=== PATIENT | female | born 1995 | race African-American/Black ===

== ENCOUNTER 2022-01-27 22:31 | Emergency (ER) | payer MEDICAID, SELFPAY ==
[2022-01-27 23:43] VITALS: BP 136/85; PULSE 78; RESP 16; TEMP 37.3; O2SAT 99; BMI 44.4
[2022-01-28] MEDS: LORazepam 1 MG TABLET PO (00:49)
[2022-01-28] MEDS: Acetaminophen 325 MG TABLET 650 MG PO (00:49)
--- NOTE | 2022-01-28 01:15 | ED_ITS ---
HPI - Headache General Chief Complaint: Headache Stated Complaint: Headache Time Seen by Provider: 01/28/22 00:29 Source: patient Mode of arrival: ambulatory Limitations: no limitations History of Present Illness HPI Narrative: 27 yo female with hx of headaches, conversion disorder, tics and convulsions related to it notes tonight she felt stressed out global headache and her symptoms of tics and movements became worse with episode. MD elicited complaint: headache Pertinent past history: other (anxiety/stress/conversion disorder) Onset (ago): hour(s) (few) Onset description: gradually Location: diffuse and generalized Severity: moderate Quality & Timing: dull, constant and other (has improved since leaving the situation) Exacerbating factors: other (stress) Relieving factors: nothing Associated symptoms: other (dizziness, tics movements) Treatments prior to arrival: none Related Data Allergies Allergy/AdvReac Type Severity Reaction Status Date / Time shellfish derived Allergy Anaphylaxis Verified 01/27/22 23:42 Review of Systems Review of Systems: Constitutional : No Fever, No Chills, No Fatigue ENT/Mouth : No sore throat, No Rhinorrhea Eyes: No Eye Pain, No Swelling, No Redness Cardiovascular : No Chest Pain, No SOB, No Dyspnea on Exertion Respiratory : No Cough, No Sputum Gastrointestinal : No Nausea, No Vomiting, No Diarrhea, No abdominal Pain Genitourinary : No Dysuria, No Urinary Frequency, No Hematuria, Musculoskeletal : No joint pain, No Myalgias, No Joint Swelling Skin : No Skin Lesions, No rash Neuro : No Weakness, No Numbness, No Dizziness, positive Headache Psych : pos Anxiety/Panic, No Depression Heme/Lymph: No Bruising, No Bleeding,No Lymphadenopathy Endocrine : No Polyuria, No Polydipsia All other systems reviewed and are negative [facility] Past Medical History Attestation statement: The following information was validated with the patient. Medical History Conversion disorder Social History Social History (Updated 01/28/22 @ 01:19 by Shobha Newman DO) Patient Tobacco Use Status: Never used Tobacco Advance Directives: No Advance Directives Information Provided: Yes Physical Exam Vital Signs: Vital Signs: Last Vital Signs Temp 99.1 F 01/27/22 23:43 Pulse 78 01/27/22 23:43 Resp 16 01/27/22 23:43 BP 136/85 01/27/22 23:43 Pulse Ox 99 01/27/22 23:43 O2 Del Method 01/27/22 23:43 BMI result Body Mass Index 44.4 Appearance: Alert. Oriented X3. No acute distress. intermittent movememts of arms very sporadic, laughging no distress Eyes: Pupils equal, round and reactive to light. ENT: Pharynx normal. Neck: Normal inspection. Neck supple. no meningeal signs CVS: Normal heart rate and rhythm. Pulses normal. Respiratory: No respiratory distress. Breath sounds normal. Abdomen: Soft and nontender. Skin: Skin warm and dry. Normal skin color. Normal skin turgor. Extremities: No lower extremity edema. No calf ttp Neuro: Oriented X 3. No motor deficit. No sensory deficit. Course Course Course Narrative: headache improved feels better would like to go home MDM - Headache MDM Narrative Medical decision making narrative: 27 yo female with hx of prior headaches, conversion disorder here with c/o headaches gradual onset associated somatic symptoms which are not unusual for her she is overall not toxic. No fevers, no AC therapy. Normal neuro exam - doubt GEAR FINISHER infection/SAH. Will give ativan and tylenol. Discharge Plan Discharge Clinical Impression: Anxiety Acute tension headache Qualifiers: Intractability: not intractable Qualified Code(s): G44.209 - Tension-type headache, unspecified, not intractable Patient Disposition: Home, Self-Care Instructions: Acute Headache (ED), Anxiety (ED) Additional Instructions: return to ED for any worsening symptoms or concerns please follow up with your doctor Stand Alone Forms: Work/School Release
[2022-01-28 01:59] VITALS: BP 132/76; PULSE 86; RESP 16; TEMP 37.2; O2SAT 96
== END 2022-01-28 02:01 | disposition home or self-care (01) ==
PROVIDERS: Emergency Provider Emergency Medicine
DX: G44.209 Tension-type headache, unspecified, not intractable (principal); F41.9 Anxiety disorder, unspecified
CPT/HCPCS: 99283

== ENCOUNTER → 2022-02-19 13:23 | Outpatient (BNVA) | payer MEDICAID, SELFPAY | PROVIDERS: Visit Provider Physician Assistant | DX: E66.01 Morbid (severe) obesity due to excess calories (principal); M06.9 Rheumatoid arthritis, unspecified; J45.909 Unspecified asthma, uncomplicated; Z68.42 Body mass index [BMI] 45.0-49.9, adult | CPT/HCPCS: 99202 ==

== ENCOUNTER 2022-03-04 09:59 | Outpatient (REF) | payer MEDICAID, SELFPAY ==
[2022-03-04 10:23] LABS: MANUAL DIFF FLAG NO
[2022-03-04 10:56] LABS: Basophils Absolute Auto 0.1 X10*3/uL (0.0-0.2); Basophils Percent Auto 0.9 % (0-2); Eosinophils Absolute Auto 0.3 X10*3/uL (0.0-0.4); Eosinophils Percent Auto 5.1 % (0-4); Hematocrit 40.6 % (37.0-47.0); Hemoglobin 12.7 g/dl (12.0-16.0); Imm Gran Abs Auto 0.02 X10*3/uL (0.00-0.03); Imm Gran Pct Auto 0.3 % (0.0-0.4); Lymphocytes Percent Auto 33.3 % (20-40); Mean Corpuscular HGB Conc 31.3 g/dl (31.0-35.0); Mean Corpuscular Hemoglobin 28.9 pg (27.0-33.0); Mean Corpuscular Volume 92.3 fL (80.0-98.0); Mean Platelet Volume 11.7 fL (9.4-12.3); Monocytes Absolute Auto 0.5 X10*3/uL (0.1-1.2); Monocytes Percent Auto 8.3 % (2-11); Neutrophils Absolute Auto 3.1 x10*3/uL (2.0-8.3); Neutrophils Percent Auto 52.1 % (45-73); Platelet Count 265 X10*3/uL (160-400); Red Cell Distribution Width 13.1 % (11.0-16.0); White Blood Count 5.9 X10*3/uL (4.8-10.8)
[2022-03-04 11:06] LABS: Estimated Average Glucose 100 mg/dL; Hemoglobin A1c % 5.1 %
[2022-03-04 11:29] LABS: Alanine Aminotransferase 15 U/L (0-31); Albumin Level 4.1 g/dL (3.5-5.0); Alkaline Phosphatase 106 U/L (39-117); Anion Gap 14 (12-20); Aspartate Amino Transferase 15 U/L (5-31); Bilirubin Total 0.5 mg/dL (0.0-1.0); Blood Urea Nitrogen 11 mg/dL (9-16); C Reactive Protein 2.55 mg/dL (< or = 0.50); Calcium 9.4 mg/dL (8.4-10.2); Carbon Dioxide 27 mmol/L (22-29); Chloride 104 mmol/L (96-108); Cholesterol 176 mg/dL; Estimated Glomerular Filt Rate > 60; Glucose Random 94 mg/dL (60-115); HDL Cholesterol 41 mg/dL; Iron 42 mcg/dL (30-160); LDL Cholesterol Calculated 127 mg/dl; Percent Iron Saturation 14 % (15-50); Potassium 4.1 mmol/L (3.3-5.1); Sodium 141 mmol/L (135-145); Total Iron Binding Capacity 298 mcg/dL (228-428); Total Protein 7.6 g/dL (6.5-8.0); Triglycerides 41 mg/dL; Unsaturated Iron Binding 256 ug/dL
[2022-03-04 11:43] LABS: Ferritin 48 ng/mL (10-122); TSH reflex Free T4 0.81 uIU/mL (0.32-4.0); Vitamin D 25-OH Total 19.9 ng/mL (>30)
[2022-03-04 12:00] LABS: Folate 15.2 ng/mL (> or = 4.0); Vitamin B12 435 pg/mL (200-900)
[2022-03-04 12:25] LABS: Insulin 8 uU/mL (2-29)
[2022-03-05 11:02] LABS: Calcium (PTHI) 9.2 mg/dL (8.6-10.2); PTHI 54 pg/mL (16-77)
[2022-03-07 00:51] LABS: Zinc 75 mcg/dL (60-130)
[2022-03-08 10:26] LABS: Vitamin A 26 mcg/dL (38-98)
[2022-03-08 13:21] LABS: Vitamin B1 8 nmol/L (8-30)
== END 2022-03-04 10:00 | disposition home or self-care (01) ==
LOC: HO.LAB 09:59
PROVIDERS: Visit Provider Physician Assistant
DX: E66.01 Morbid (severe) obesity due to excess calories (principal); M06.9 Rheumatoid arthritis, unspecified
CPT/HCPCS: 36415; 80053; 80061; 82306; 82607; 82728; 82746; 83036; 83525; 83540; 83970; 84425; 84443; 84590; 84630; 85025; 86140

== ENCOUNTER → 2022-03-05 15:25 | Outpatient (BNVA) | payer MEDICAID, SELFPAY | PROVIDERS: Referring Provider Physician Assistant; Visit Provider Dietitian, Registered | DX: E66.01 Morbid (severe) obesity due to excess calories (principal); Z71.3 Dietary counseling and surveillance | CPT/HCPCS: 97802 ==

== ENCOUNTER → 2022-03-11 14:00 | Outpatient (BNVA) | payer MEDICAID, SELFPAY | PROVIDERS: Referring Provider Physician Assistant; Visit Provider Counselor Mental Health | DX: F33.1 Major depressive disorder, recurrent, moderate (principal); F50.81 Binge eating disorder | CPT/HCPCS: 90791 ==

== ENCOUNTER 2022-03-21 11:06 | Outpatient (REF) | payer MEDICAID, SELFPAY ==
[2022-03-22 11:58] LABS: H Pylori Breath Test Negative (Negative)
== END 2022-03-21 11:07 | disposition home or self-care (01) ==
LOC: HO.LNP 11:06
PROVIDERS: Visit Provider Physician Assistant
DX: E66.01 Morbid (severe) obesity due to excess calories (principal); F50.81 Binge eating disorder; M06.9 Rheumatoid arthritis, unspecified
CPT/HCPCS: 83013; 99211; 99212

== ENCOUNTER → 2024-06-14 08:17 | Outpatient (BNV) | payer MEDICAID, SELFPAY | PROVIDERS: Emergency Provider Emergency Medicine Emergency Medical Services; PCP Nurse Practitioner Family; Visit Provider Internal Medicine | DX: R11.0 Nausea (principal); R94.31 Abnormal electrocardiogram [ECG] [EKG] | CPT/HCPCS: 93010 ==

== ENCOUNTER 2024-07-05 16:42 | Outpatient (REF) | payer MEDICAID, SELFPAY ==
[2024-07-05 18:21] LABS: Rheumatoid Factor < 13.0 IU/mL (<15.0)
[2024-07-05 18:32] LABS: C Reactive Protein 0.49 mg/dL (< or = 0.50); HCG Quantitative < 2 mIU/mL
[2024-07-05 18:41] LABS: Erythrocyte Sedimentation Rate 23 MM/HR (0-20)
--- OUTSIDE RECORDS SUMMARY | 2024-07-05 20:02 | XMS_ITS | Encounter Summary ---
Author Organization [facility] Address [address] [place] [address] Phone Care Team Providers Care Test Administrator Name Role Phone Caroline Russo MD Primary Care Provider [phone] Encounter Details Date Type Department Care Team (Late st Contact Info) Description 02/14/2010 Nurse Only [facility], [address] [address] Social History Tobacco Use Types Packs/Day Years Used Date Smoking Tobacco: Never Assessed Comments Unknown Sex and Gender Information Value Date Recorded Sex Assigned at Not on file Legal Sex Female 4:07 PM EST Gender Identity Not on file Sexual Orientation Not on file documented as of this encounter Nursing Notes * UNKNOWN, HISTORICAL - 02/14/2010 10:27 AM EDT Rosalina Cuellar. 1995 NURSE NOTE/VERBAL ORDERS Office/Outpatient Visit Visit Date: Feb 14, 2010 10:27 am Provider: Shanika Kearney LPN (Research And Development Specialist: Keon Rivas MD; Bus Operator: Shanika Kearney LPN) Location: [facility]. ECTIVE: CC: Patient enters with her mother and cousin for a PPD HPI: Rosalina Cuellar states she has never had a positive PPD in the past.. Rosalina Cuellar has never had a BCG injection. ASSESSMENT: V0 PPD Planting ORDERS: Lab Orders: PPD TB test PLAN: PPD Planting PPD Planted : Site: Right forearm: 0.1 ml ofTuberculin Purified Protein Derivative was injected intradermally. Return: Advised she return in 48 to 72 hours for PPD reading Orders: PPD TB test CHARGE CAPTURE: Primary Diagnosis: PPD Planting Orders: [id number] PPD TB test documented in this encounter Plan of Treatment Not on file documented as of this encounter Visit Diagnoses Not on filedocumented in this encounter Care Teams Test Administrator Relationship Specialty Start Date End Date Caroline Russo MD [address] [place] [address] [address] [place] [address] PCP - General Pediatrics 05/13/17 documented as of this encounter
--- OUTSIDE RECORDS SUMMARY | 2024-07-05 20:02 | XMS_ITS | Clinical Summary ---
Author Organization [facility] it[facility] Address [address] [place] [address] Care Team Providers Care Infrastructure Solutions Architect Name Role Phone Wild Schwartz MD Primary Care Provider [phone] Social History Tobacco Use Types Packs/Day Years Used Date Smoking Tobacco: Never Assessed Sex and Gender Information Value Date Recorded Sex Assigned at Not on file Gender Identity Not on file Sexual Orientation Not on file Plan of Treatment Health Maintenance Due Date Last Done Comments Hepatitis B Vaccines (1 of 3 - 19+ 3-dose series) 01/21/2015 Cervical Cancer Screening: P ap Smear 01/21/2017 Depression Screening 05/13/2022 HIV Screening 05/13/2022 Hepatitis C Screening 05/13/2022 Social Influencers of Health Screening 05/13/2022 COVID-19 Vaccine ( - 2023-2 5 season) 2024 Influenza Vaccine (#1) 2024 DTaP,Tdap,and Td Vaccines (2 - Td or Tdap) 12/13/2027 12/12/2017 HIB Vaccines Aged Out No longer eligi ble based on patient's age to complete this topic HPV Vaccines Aged Out No longer eligi ble based on patient's age to complete this topic Hepatitis A Vaccines Aged Out No long er eligible based on patient's age to complete this topic IPV Vaccines Aged Out No longer eligi ble based on patient's age to complete this topic MMR Vaccines Aged Out No longer eligi ble based on patient's age to complete this topic Meningococcal ACWY Vaccine Aged Out N o longer eligible based on patient's age to complete this topic Pneumococcal Vaccine: Pediat rics (0 to 5 Years) and At-Risk Patients (6 to 64 Years) Aged Out No longer eligi ble based on patient's age to complete this topic RSV Immunization Patients Un adali 20 months Aged Out No longer eligible b ased on patient's age to complete this topic Varicella Vaccines Aged Out No longer eligible based on patient's age to complete this topic Care Teams Infrastructure Solutions Architect Relationship Specialty Start Date End Date Wild Schwartz MD [address] [place] [address] [address] [place] [address] PCP - General Pediatrics 06/08/18
--- OUTSIDE RECORDS SUMMARY | 2024-07-05 20:02 | XMS_ITS | Data Portability ---
Author Organization [facility]ACK - [facility], [address] Address [address] [place] [address] Assessment No assessment recorded. Plan of Treatment Reminders Order Date Submit Date Provider Last Modified By Organization Details Last Modified Time Details Appointments None recorded. Lab rapid strep group A, throat 2023 024 [email or web address], [address] [place], [address], 16:32:28 Referral None recorded. Procedures None recorded. Surgeries None recorded. Imaging None recorded. Medication Orders amoxicillin 500 mg capsule 2023 024 [facility]/Pharmacy #[id number], [phone] [place], [address], 4 16:32:28 ofloxacin 0.3 % eye drops 2023 024 [facility]/Pharmacy #[id number], [phone] [place], [address], 4 16:32:28 Patient TargetsNo targets recorded. Patient Instructions Encounter Date Encounter Id Patient Instructions Last Modified By Organization Details Last Modified Time 11/10/2023 [id number] strep throat: care instructions [email or web address] Not available 11/10/2023 16:32:25 Reason for Referral None Reported. Results Created Date Observation Date Name Description Value Unit Range Abnormal Flag Note LastModifiedBy Organization Detail LastModifiedTime 11/10/19 24 11/10/2023 rapid strep group A, throa t Unknown Analyte negati ve Not Available [address] [place], [address], 11/10/2023 16:22:09 Result Notes None recorded. Problems Name Problem SNOMED Code Status Onset Date Resolution Date Notes Provider Name and Address Organization Details Recorded Time Asthma [id number] Active 024 JACK Guevara - [facility] 11/10/2023 16:21:24 Problem Notes None recorded. Medical Equipment None Reported. Allergies No known drug allergies Medications Name Sig Start Date Stop Date Status Note LastModified by Organization Details LastModified Time amoxicillin 500 mg capsule TAKE 1 CAPSULE BY MOUTH TWICE A DAY FOR 10 DAYS active Not Available Not Available No t Available acetaminophe n 325 mg tablet TAKE 2 TABLETS BY MOUTH EVERY 4 HOURS NEEDED FOR PAIN active Not Available Not Available No t Available Apri 0.15 mg-0.03 mg tablet TAKE 1 TABLET BY MOUTH EVERY DAY (SAME TIME EVERY DAY) active Not Available Not Available No t Available ofloxacin 0.3 % eye drops INSTILL 1 DROP 4 TIMES A DAY BY OPHTHALMIC ROUTE FOR 10 DAYS. active Not Available Not Available No t Available Senthil-Gest Antacid 200 mg (as calcium carbonate 500 mg) chewable tablet CHEW AND SWALLOW 1 TABLET BY MOUTH 3 TIMES DAILY NEEDED FOR INDIGESTION . active Not Available Not Available No t Available prednisone 20 mg tablet TAKE 2 TABLETS (40 MG TOTAL) BY MOUTH ONCE DAILY FOR 4 DAYS. active Not Available Not Available Not Available clotrimazole 1 % vaginal cream APPLY VAGINALLY ONCE DAILY AT BEDTIME active Not Available Not Available N ot Available metronidazol e 500 mg tablet TAKE 1 TABLET BY MOUTH EVERY 12 HOURS FOR 7 DAYS active Not Available Not Available N ot Available aspirin 81 mg tablet,delay ed release TAKE 2 TABLETS BY MOUTH DAILY AT BEDTIME active Not Available Not Available N ot Available triamcinolon e acetonide 0.1 % topical cream APPLY TO AFFECTED AREA TWICE A DAY FOR 14 DAYS active Not Available Not Available No t Available prednisolone acetate 1 % eye drops,suspen dilan INSTILL 1 DROP INTO LEFT EYE 4X/DAY X7 DAYS, THEN 2X/DAY X5 DAYS, THEN 1X/DAY X5 DAYS DIRECTED. active Not Available Not Available No t Available oseltamivir 75 mg capsule TAKE 1 CAPSULE BY MOUTH TWICE A DAY FOR 5 DAYS active Not Available Not Available No t Available ferrous sulfate 325 mg (65 mg iron) tablet TAKE 1 TABLET BY MOUTH EVERY DAY active Not Available Not Available No t Available prednisone 50 mg tablet TAKE 1 TABLET BY MOUTH EVERY DAY FOR 5 DAYS active Not Available Not Available No t Available amoxicillin 875 mg-potassium clavulanate 125 mg tablet TAKE 1 TABLET BY MOUTH EVERY 12 HOURS FOR 10 DAYS active Not Available Not Available Not Available Ventolin HFA 90 mcg/actuatio n aerosol inhaler INHALE 2 PUFFS 4 TIMES A DAY NEEDED FOR SHORTNESS OF BREATH OR WHEEZING FOR 10 DAYS active Not Available Not Available Not Available Heartburn Relief (famotidine) 10 mg tablet TAKE 1 TABLET BY MOUTH TWICE DAILY. active Not Available Not Available No t Available cyclobenzapr ine 5 mg tablet TAKE 1 TABLET BY MOUTH TWICE A DAY FOR 3 DAYS NEEDED FOR PAIN ,MODERATE active Not Available Not Available No t Available Gavilax 17 gram/dose oral powder DISSOLVE 17 GRAMS IN WATER THEN TAKE BY MOUTH EVERY DAY NEEDED FOR CONSTIPATIO N active Not Available Not Available No t Available Vitals Date Recorded Body height Provider Name an d Address Organization Details Last Updated DateTime 11/10/2023 167.64 cm Jody Savage [email or web address] - [facility] 11/10/2023 16:19:49 Date Recorded Body mass index (BMI) Body weight Provider Name and Address Organization Details Last Updated DateTime 11/10/2023 45.2 kg/m2 085203.86 g Jody Savage [email or web address] - [employer] [facility] 11/10/2023 16:20:23 Date Recorded Oxygen saturation Oxygen saturation in Arterial blood by Pulse oximetry Provider Name and Address Organization Details Last Updated DateTime 11/10/2023 100 % 100 % Jody Savage PA - [facility] 11/10/2023 16:20:34 Date Recorded Pain severity - 0-10 verbal numeric rating [Score] - Reported Provider Name and Address Organization Details Last Updated DateTime 11/10/2023 0 Jody Savage [email or web address] - [facility] 11/10/2023 16:20:37 Date Recorded Heart rate Provider Name an d Address Organization Details Last Updated DateTime 11/10/2023 81 /min Jody Savage [email or web address] - [facility] 11/10/2023 16:20:44 Date Recorded Respiratory rate Provider Name a nd Address Organization Details Last Updated DateTime 11/10/2023 18 /min Jody Renoarez Srinivaskeira PA - [facility] 11/10/2023 16:20:46 Date Recorded Body temperature Provider Name a nd Address Organization Details Last Updated DateTime 11/10/2023 98.6 [degF] Jody Renoarez Srinivaskeira PA - [facility] 11/10/2023 16:20:49 Date Recorded Systolic blood pressure Diastolic blood pressure Provider Name and Address Organization Details Last Updated DateTime 11/10/2023 117 mm[Hg] 76 mm[Hg] Jody Renoarez Srinivaskeira PA - [facility] 11/10/2023 16:20:31 Social History Question Answer Notes LastModified by Organizat ion Details LastModified Time Tobacco Smoking Status Never Smoker Jody Riley Savage null, [place] - [facility] 11/10/2023 16:21:39 What Is Your Level Of Alcohol Consumption? None Information not available 11/10/2023 Are You Currently Employed? Yes Information not available 11/10/2023 Have You Had A Flu Shot This Season? No Information not available 11/10/2023 If No, Would You Like A Flu Shot Today? No Information not available 11/10/2023 Have You Had Direct Contact, Or Contact During Intimacy, With Monkeypox Rash, Scabs, Or Body Fluids From A Person With Monkeypox? No Information not available 11/10/2023 What Was The Date Of Your Most Recent Tobacco Screening? 11/10/2023 Information not available 11/10/2023 What Is Your Relationship Status? Single Information not available 11/10/2023 Do You Use Any Illicit Or Recreational Drugs? No Information not available 11/10/2023 Have You Recently Traveled Abroad? No Information no t available 11/10/2023 Are You Currently In School? No Information not available 11/10/2023 Do You Or Have You Ever Used Any Other Forms Of Tobacco Or Nicotine? No Information not available 11/10/2023 Sex: Unknown Functional Status None recorded. Mental Status None recorded. Family History Nothing Reported. Medical History No medical history recorded. Gynecological History Statement/Question Response Date of LMP 12/16/2022 Is there any chance of ? No Obstetrics History GPAL:G 0 P 0 0 0 0 Past Encounters Encounter ID Performer Location Encounter Start Date Encounter Closed Date Diagnosis/Indication Diagnosis SNOMED-CT Code Diagnosis ICD10 Code Diagnosis Note [id number] [facility] [address] [place] [address] 01/29/2017 17:59:08 01/29/2017 19:39:43 [id number] JACK Tate [id number] [facility] [address] [place] [address] 11/10/2023 16:10:52 11/10/2023 16:32:55 Streptococcal sore throat 26380176 J02.0 Based on your Presentati on, Exam, and Lab Testing you are being diagnosed with Strep Throat. I am going to prescribe you and antibiotic to cover this infection. Please be sure to complete the full course of this antibiotic to prevent antibiotic resistance . It is also important to complete this antibiotic because this infection is what causes Scarlet Fever/Rheu matic Heart Disease. Antibiotic s will typically take 4-5 days to start to work with symptom improvemen t. The following are my other recommenda tions to help with symptoms and is important for this diagnosis: 1. Do not share any food or drinks - strep is passed through direct saliva exchange (NOT IN THE AIR)2. Change your toothbrush in 3-4 days so that you don't re-infect yourself after you complete the antibiotic .3. Take Ibuprofen or Tylenol if you do not have any allergies to these medication s. If you take a blood thinner you should not take NSAIDS like Ibuprofen. These medication will help with the inflammati on in your respirator y tract which should help the cough.4. Do not take any Cold Medication s that have a Decongesta nt in it - this will dry out your throat and make the sore throat worse.5. Drinking Hot Tea with honey can help coat and soothe your throat.6. You would be considered contagious for the next 24-48 hours, or until fever resolves. I would be seen again if you develop any of the following symptoms.1 . Fever > 101.02. Stiff neck - where you can't turn your neck3. Trouble swallowing your saliva - drooling4. Swelling of a lymph node in your throat that is painful to touch5. Difficulty breathing6 . Severe Headache Thank you for using [facility] today, please feel free to contact our office if you have any questions or concerns. Acute conj unctivitis of right eye [id number] 70900 H10.31 Based on your presentati on and exam, you are going diagnosed with Conjunctiv itis. I am going to cover you for a bacterial infection in the eye with antibiotic eye drops. Sometimes these symptoms can be caused by a virus or allergies. Viral infections with spontaneou sly resolve after 7-10 days and do not require treatment. If it is an allergy cause sometime oral allergy medication s will help with these symptoms or a allergy eye drop that can be purchased OTC. The following are my recommenda tions to help with your symptoms and this diagnosis: 1. Do not rub your eyes this can cause it to spread or damage the cornea of your eye.2. Wash surfaces such as cell phones, remotes, door knob frequently , because this is how it is transmitte d to others.3. Do not wear contacts for at least 1 week if you have contacts.4 . No makeup5. You can take Ibuprofen or Tylenol for discomfort if you are not allergic to them.6. If you get lubricatin g eye drops and put them in the refrigerat or - this can help with itching and discomfort . You should be seen again if you develop any of the following symptoms1. Eye pain or pressure behind the eye.2. Redness or significan t swelling of the eyelid or around the eye3. Headache4. Fever > 100.55. No improvemen t in current symptoms in the next 1 week. Thank you for using [facility] today, please feel free to contact us with any questions or concerns. Health Concerns Section Related Observation LastModified by Organization Detai ls LastModified Time None Recorded Concern Status LastModified by Organization Details LastModified Time None Recorded Advance Directives Directive None Recorded Payers Encounter Date Sequence Insurance Name Policy Number Policy Corbett Covered Member ID Corbett Member ID Guarantor Name 01/29/2017 1 [facility] [id number] Rosalina Murray [id number] Rosalina Cuellar 11/10/2023 1 [place] [facility] Rosalina Cuellar [id number] Rosalina Cuellar Notes Date Note Type Note Provider Name and Address Organization Details Recorded Time 11/10/2023 text/html 28 y/o female here with 3 days of sore throat, chills, body aches. Also with R eye redness and thick yellow discharge starting last night JACK Tate [address] [place], [address], [place] - [facility] 11/10/2023 16:41:50 OBGyn Episode No OBEpisode recorded.
--- OUTSIDE RECORDS SUMMARY | 2024-07-05 20:03 | XMS_ITS | Encounter Summary ---
Author Organization [facility] Address [address] [place] [address] Phone Care Team Providers Care Faith Healer Name Role Phone Caroline Russo MD Primary Care Provider [phone] Reason for Visit * Reason Comments Med Refill Encounter Details Date Type Department Care Team (Late st Contact Info) Description 07/03/2018 Refill [facility] [address] [place] [address] Caroline Russo MD [address] [place] [address] [address] [place] [address] Mild intermittent asthma without complication Social History Tobacco Use Types Packs/Day Years Used Date Smoking Tobacco: Never Comments:Never Smoker Alcohol Use Standard Drinks/Week Comments Yes 0 (1 standard drink = 0.6 oz pure alcohol) very occasional, denies concerns of dependency. Comments Unknown Sex and Gender Information Value Date Recorded Sex Assigned at Not on file Legal Sex Female 4:07 PM EST Gender Identity Not on file Sexual Orientation Not on file documented as of this encounter Plan of Treatment Not on file documented as of this encounter Visit Diagnoses Diagnosis Mild intermittent asthma without complication documented in this encounter Care Teams Faith Healer Relationship Specialty Start Date End Date Caroline Russo MD [address] [place] [address] [address] [place] [address] PCP - General Pediatrics 05/13/17 documented as of this encounter
--- OUTSIDE RECORDS SUMMARY | 2024-07-05 20:03 | XMS_ITS | Encounter Summary ---
Author Organization [facility] Address [address] [place] [address] Phone Care Team Providers Care Field Software Engineer Name Role Phone Caroline Russo MD Primary Care Provider Reason for Visit * Reason Comments Med Refill Encounter Details Date Type Department Care Team (Late st Contact Info) Description 01/02/2018 Refill [facility] [address] [place] [address] Valerie Young MD Mild persistent asthma with acute exacerbation Social History Tobacco Use Types Packs/Day Years [...] of this encounter Visit Diagnoses Diagnosis Mild persistent asthma with acute exacerbation documented in this encounter Care Teams Field Software Engineer Relationship Specialty Start Date End Date Caroline Russo MD [address] [place] [address] [address] [place] [address] PCP - General Pediatrics 05/13/17 documented as of this encounter
--- OUTSIDE RECORDS SUMMARY | 2024-07-05 20:03 | XMS_ITS | Encounter Summary ---
Author Organization [facility] Address [address] [place] [address] Phone Care Team Providers Care Motel Manager Name Role Phone Caroline Russo MD Primary Care Provider [phone] Encounter Details Date Type Department Care Team (Late st Contact Info) Description 02/16/2010 Nurse Only [facility], [address] [address] Social History Tobacco Use Types Packs/Day Years Used Date Smoking Tobacco: Never Assessed Comments Unknown Sex and Gender Information Value Date Recorded Sex Assigned at Not on file Legal Sex Female 4:07 PM EST Gender Identity Not on file Sexual Orientation Not on file documented as of this encounter Nursing Notes * UNKNOWN, HISTORICAL - 02/16/2010 1:51 PM EDT Rosalina Cuellar. 1995 NURSE NOTE/VERBAL ORDERS Office/Outpatient Visit Visit Date: Feb 16, 2010 01:51 pm Provider: Cindy Frye CMA (Racket Stringer: Megha Burnham MD; Party Plan Sales Unit Sales Leader: Cindy Frye CMA) Location: [facility]. ECTIVE: CC: Patient enters alone and cousin. for a PPD Reading only HPI: She presents for PPD reading. PPD planted 02/14/10 Location planted: R forearm. Reaction: 0 mm induration and 0 mm erythema Allergies: Last Reviewed on 10/24/2009 4:39:49 PM by Padmini Walton No Known Drug Allergies. ASSESSMENT: V0 PPD Planting ORDERS: Other Orders: PPD Reading Only PLAN: PPD Planting PPD Reading: read as negative, no redness or swelling noted. 0 mm induration 0 mm erythema Orders: PPD Reading Only CHARGE CAPTURE: Primary Diagnosis: V0 PPD Planting Orders: PPDR PPD Reading Only documented in this encounter Plan of Treatment Not on file documented as of this encounter Visit Diagnoses Not on filedocumented in this encounter Care Teams Motel Manager Relationship Specialty Start Date End Date Caroline Russo MD [address] [place] [address] [address] [place] [address] PCP - General Pediatrics 05/13/17 documented as of this encounter
--- OUTSIDE RECORDS SUMMARY | 2024-07-05 20:03 | XMS_ITS | Clinical Summary ---
Author Organization [facility] Address [address] [place] [address] Phone Care Team Providers Care Emergency Medical Dispatcher Name Role Phone Caroline Russo MD Primary Care Provider Allergies Active Allergy Reactions Criticality Noted Date Comments Crab (Diagnostic) Medications fluticasone (FLONASE) 50 MCG/ACT nasal sprayIndications :Seasonal allergic rhinitis due to pollen Administer 1 spray into each nostril daily. 1 Units 5 7 Active fluticasone HFA (FLOVENT HFA) 110 MCG/ACT inhalerIndicatio ns:Moderate persistent asthma, unspecified whether complicated Inhale 2 puffs 2 (two) times a day. Rinse mouth with water after use to reduce aftertaste and incidence of candidiasis. Do not swallow. 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 Call 02/17 immediately. 2 Syringe 1 8 Active albuterol HFA (PROAIR HFA) 108 (90 Base) MCG/ACT inhalerIndicatio ns:Moderate persistent asthma without complication Inhale 2 puffs every 4 (four) hours as needed for wheezing or shortness of breath. 1 Units 1 8 Active albuterol HFA (PROAIR HFA) 108 (90 Base) MCG/ACT inhalerIndicatio ns:Mild persistent asthma with acute exacerbation Inhale 2 puffs every 4 (four) hours as needed for wheezing or shortness of breath. 1 Units 8 Active albuterol HFA (PROAIR HFA) 108 (90 Base) MCG/ACT inhalerIndicatio ns:Mild intermittent asthma without complication Inhale 2 puffs every 4 (four) hours as needed for wheezing. 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 Refill provided at [facility]. Assessment & Plan (12/12/2017 4:13 PM EDT): Avoidance and Epi-pen for emergency. Refill provided at [facility]. Moderate persistent asthma 04/01/2017 Overview (12/12/2017): Recommended to take Flovent, though has been noncompliant. Triggers area seasonal (heat) and exercise. Uses Albuterol about once per day currently. Assessment & Plan (12/12/2017 4:12 PM EDT): Recommended to take Flovent, though has been noncompliant. Triggers area seasonal (heat) and exercise. Uses Albuterol about once per day currently. Reviewed importance of Flovent use for maintenance, especially in warm summer months. Reviewed Albuterol use and refill provided. Asthma review in 6 months is recommended. Assessment & Plan (04/01/2017 4:11 PM EDT): Spirometry revealed mild obstruction with small airway disease. 4 puffs albuterol improved FEV1/FVC but [id number] continued to be decreased. Reviewed with patient. Will start Flovent as directed 2 puffs twice daily. Albuterol every 4 hours prn. Followup in 2 weeks or sooner prn Severe obesity (BMI >= 40) 07/05/2016 Overview (12/12/2017): Discussed at length with patient, who was somewhat passive in discussion. Screening labs ordered. Assessment & Plan (12/12/2017 4:17 PM EDT): Discussed at length with patient. Rosalina acknowledges that her weight is a problem and that her habits are likely related to her troubles with fatigue, decreased mood and constipation. She is somewhat apathetic in discussion of strategies for healthier choices. We reviewed dietary and exercise recommendations. Screening labs ordered, will f/u with results. Other atopic dermatitis and related conditions 1 06/12/2015 Depressed mood 09/19/2015 Overview (12/12/2017): Some depressed mood. Pt feels she handles it well with therapy. No interest in pursuing further treatment. No safety concerns. F/u PRN. Assessment & Plan (12/12/2017 4:26 PM EDT): Some depressed mood. Pt feels she handles it well with therapy. No interest in pursuing further treatment. No safety concerns. F/u PRN. Chronic fatigue 08/14/2015 Overview (12/12/2017): Chronic. Likely due to poor sleep routine. Thyroid screening labs ordered. Assessment & Plan (12/12/2017 4:41 PM EDT): Chronic. Likely due to poor sleep routine. Thyroid screening labs ordered. 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 Pt discharged from rheumatology, mostly due to poor compliance with recommended treatment and f/u. Is recommended to have routine eye screenings. She missed her appointment this year, instructed to reschedule. Assessment & Plan (12/12/2017 4:19 PM EDT): With associated uveitis. Pt discharged from rheumatology, mostly due to poor compliance with recommended treatment and f/u. Denies any current or recent symptoms. Is recommended to have routine eye screenings. She missed her appointment this year, instructed to reschedule. 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 Other acne 03/07/2014 12/12/2017 Generalized anxiety disorder 02/23/2013 12/12/2017 Immunizations Name Administration Dates Next Due DTaP 5 02/14/2000, 8,1996,05/24,1996 H1N1 Inj 03/30/2009 HPV, Quadrivalent 10/23/2010,10/24/2009,10/06/19 08 Hep B, ped/adol 1996,1996,1996 Hib (HbOC) 04/11/1997, 7,1996,03/26 IPV 02/14/2000 Influenza, injectable, triva lent, preservative free 03/01/2014,03/30/2009 MMR 11/19/2000,04/11/1997 Meningococcal Conj (Menactra) MCV4P 03/01/2014,0 10/24/2009 OPV 1996,1996,1996 PPD Test 02/14/2010 Tdap 12/12/2017,10/06/2007 Varicella 10/28/2011,01/12/1998 Social History Tobacco Use Types Packs/Day Years [...] on file Sexual Orientation Not on file Last Filed Vital Signs Vital Sign Reading Time Taken Comments Blood Pressure 126/86 12/12/2017 3:07 PM EDT Pulse 84 12/12/2017 3:07 PM EDT Temperature 36.8 ??C (98.3 ??F) 12/12/2017 3:07 PM ED T Respiratory Rate 18 12/12/2017 3:07 PM EDT Oxygen Saturation 98% 12/12/2017 3:07 PM EDT Inhaled Oxygen Concentration - - Weight 125 kg (275 lb) 12/12/2017 1:39 PM EDT Height 170.2 cm (5' 7 ) 12/12/2017 1:39 PM EDT Body Mass Index 43.07 12/12/2017 1:39 PM EDT Plan of Treatment Health Maintenance Due Date Last Done Comments Influenza Vaccines (#1) 2024 03/01/2014, 03/30 COVID-19 Vaccine ( - season) 2024 DTaP,Tdap,and Td Vaccines (8 - Td or Tdap) 12/13/2027 12/12/2017, 10/06/2007, 02/14/2000, Additional history exists Hepatitis B Vaccines Completed 1996, 1996, 1996 HIB Vaccines Completed 04/11/1997, 08/07, 1996, Additional history exists IPV Vaccines Completed 02/14/2000, 08/07, 1996, Additional history exists MMR Vaccines Completed 11/19/2000, 04/11/1997 HPV Vaccines Completed 10/23/2010, 10/07, 10/06/2007 Varicella Vaccines Completed 10/28/2011, 01/12/1998 Meningococcal Vaccine Completed 03/01/2014, 010 Hepatitis A Vaccines Aged Out No long er eligible based on patient's age to complete this topic Men B Vaccine Aged Out No longer elig ible based on patient's age to complete this topic Pneumococcal Vaccine Aged Out No long er eligible based on patient's age to complete this topic Procedures * Due to [place] [employer] [facility] law, this organization might not be sharing sensitive test results. Procedure Name Priority Date/Time Associated Diagnosis Comments CHLAMYDIA AND GONORRHEA, AMPLIFIED Routine 12/12/2017 2:24 PM EDT Encounter for screening examination for sexually transmitted disease from Last 3 Months or Most Recently Relevant to Health Maintenance Results * Due to [place] [employer] [facility] law, this organization might not be sharing sensitive test results. * Chlamydia and Gonorrhoea, Amplified (12/12/2017 2:24 PM EDT) Chlamydia Trachomatis, DNA Probe NEGATIVE (NEG) [facility] Comment: No Chlamydia Trachomatis RNA detected in this patient's sample ? (REFERENCE RANGE/NORMAL VALUE: NOT DETECTED) ? Note: This test uses car packer- mediated amplification method to detect rRNA from C. Trachomatis URINE GC AMP PROBE NEGATIVE (NEG) [facility] Comment: No Neisseria Gonorrhoeae RNA detected in this patient's sample ? (REFERENCE RANGE/NORMAL VALUE: NOT DETECTED) ? NOTE: This test uses car packer-mediated amplification method to detect rRNA from N.Gonorrhoeae. A negative result does not preclude infection. In the case of a negative urine result, testing of an endocervical(female) or urethral (male) specimen is recommended if there is high clinical suspicion of infection. Due to very high sensitivity of Nucleic Acid Amplification Test, false positive results may occur. Therefore, specimen handling is extremely important. In patients in whom the disease is unlikely, additional sample for testing should be considered after an initial positive result. The performance characteristics of this test have not been evaluated in children. The Aptima Combo2 assay is not intended for the evaluation of suspected sexual abuse or for other medico-legal indications. The ordering provider should assess if the patient had consensual sex without risk of sexual abuse. Consult the [facility] if needed. Contact phone number . Therapeutic failure or success cannot be determined with the Aptima Combo2 assay since nucleic acid may persist following appropriate antimicrobial therapy. The Centers for Disease Control and Prevention (CDC) recommends confirmatory retesting using culture or a different nucleic acid amplification test when positive results occur, if indicated. Testing performed or reported by [facility], a Service of [facility], [address] [place] [address] [place] [address] CLIA ??[id number] Jason Corey MD, PhD, [place] Chief Urine (Urine) 12/12/2017 2:2 4 PM EDT 12/12/2017 9:06 PM EDT us Caroline Mcleod NP LAB MICROBIOLOGY - GENERAL ORDERABLES Final Result [facility] from Last 3 Months or Most Recently Relevant to Health Maintenance Insurance [facility] [id number] [place] [address] NON PCC Care Teams Emergency Medical Dispatcher Relationship Specialty Start Date End Date Caroline Russo MD [address] [place] [address] [address] [place] [address] PCP - General Pediatrics 05/13/17
[2024-07-06 08:12] LABS: Syphilis Screen Nonreactive (Nonreactive)
[2024-07-06 08:20] LABS: HIV AB/AG Nonreactive (Nonreactive); HIV Num 1 0.07 S/CO (0.00-0.99)
[2024-07-06 08:28] LABS: Immunoglobulin M 103 mg/dL (50-300)
[2024-07-07 15:18] LABS: Anti Nuclear Antibody Screen NEGATIVE (NEGATIVE)
[2024-07-09 16:47] LABS: Cyclic Citrullinated Peptide <16 UNITS
== END 2024-07-05 16:43 | disposition home or self-care (01) ==
LOC: HO.LAB 16:42
PROVIDERS: PCP Nurse Practitioner Adult Health; Visit Provider Nurse Practitioner Adult Health
DX: Z72.51 High risk heterosexual behavior (principal)
CPT/HCPCS: 36415; 82784; 84702; 85652; 86038; 86140; 86200; 86431; 86780; 87389

== ENCOUNTER 2024-07-25 15:35 | Emergency (ER) | payer MEDICAID, SELFPAY ==
--- NOTE | ~2024-07-25 | US_ITS ---
CLINICAL HISTORY: RLQ abd pain?hx cyst US pelvis transabdominal and transvaginal with Doppler Comparison: None Findings: Transabdominal scanning performed for overall anatomy. Transvaginal scanning performed for additional detail. Anteverted uterus is 10.1 cm length. Normal myometrium. No endometrial lesion, 13 mm thickness. Right ovary 3.5 x 1.5 x 2.0 cm. Left ovary is only seen transabdominally and measures2.6 x 1.7 x 2.4 cm. Normal color Doppler with arterial/venous spectral tracing of the right ovary. No free fluid. IMPRESSION: No acute findings. This document has been electronically signed by: Tiffani Rock MD on 07/25/2024 18:45:59
[2024-07-25 15:55] VITALS: BP 153/85; PULSE 79; RESP 18; TEMP 37.6; O2SAT 99; BMI 48.2
--- NOTE | 2024-07-25 15:56 | ED.ABDPAIN ---
HPI - Abdominal Pain General Chief Complaint: Abdominal Pain Stated Complaint: lower rt abd pain Time Seen by Provider: 07/25/24 23:14 Source: patient Mode of arrival: ambulatory Limitations: no limitations History of Present Illness ED Provider: azalea DIXON narrative: Patient is complaining of suprapubic discomfort for last 4 months been to [facility] evaluation ultrasound were negative in 05/02 ultrasound showed small cyst wear the repeat ultrasound 2 weeks ago was negative patient also does have history of constipation no nausea no vomiting no fever Related Data Home Medications ?Medication ?Instructions ?Recorded ?Confirmed albuterol sulfate 90 mcg/actuation 2 puff inhalation Q4H 02/19/22 02/19/22 aerosol inhaler (ProAir HFA) Previous Rx's ?Medication ?Instructions ?Recorded cholecalciferol (vitamin D3) 50 50 mcg PO DAILY #30 caps 03/05/22 mcg (2,000 unit) capsule cyanocobalamin (vitamin B-12) 500 500 mcg PO DAILY #30 tabs 03/05/22 mcg tablet vitamin A palmitate 3,000 mcg 20,000 unit PO DAILY 4 weeks #56 03/08/22 (10,000 unit) tablet tabs acetaminophen 500 mg tablet 1,000 mg (2 x 500 mg) PO Q6H PRN 06/14/24 (Tylenol Extra Strength) fever or pain #20 tabs albuterol sulfate 90 mcg/actuation 2 puff inhalation Q4-6H PRN 06/14/24 aerosol inhaler shortness of breath or wheezing #8.5 grams ibuprofen 400 mg tablet 400 mg PO TID PRN fever or pain 06/14/24 #30 tabs meclizine 25 mg tablet (Dramamine 25 mg PO TID PRN dizziness #20 tabs 06/14/24 Less Drowsy) Allergies Allergy/AdvReac Type Severity Reaction Status Date / Time shellfish derived Allergy Anaphylaxis Verified 07/25/24 15:58 Review of Systems Review of Systems Yes all other systems are reviewed and are negative PMFSH Past Medical History Medical History Conversion disorder Family History Family History Mother Lymphedema Asthma Acute arthritis Social History Social History Alcohol intake: current Alcohol intake frequency: holidays/special occasions only Patient Tobacco Use Status: Never used Tobacco Advance Directives: No Advance Directives Information Provided: No Physical Exam ED Vital Signs: Vital Signs - 24 hr 07/25/24 15:55 07/25/24 23:21 Temperature 99.6 F 99.1 F Pulse Rate 79 73 Respiratory Rate 18 18 Blood Pressure 153/85 H 121/66 Pulse Oximetry 99 99 Oxygen Delivery Method Room Air Room Air BMI result Body Mass Index 48.2 Appearance: Alert. Oriented X3. No acute distress. Obese Eyes: PERRLA, No Nystagmus ENT: Pharynx normal. Oral Mucosa moist Neck: Normal inspection. Neck supple. CVS: Normal heart rate and rhythm. Pulses normal. Respiratory: No respiratory distress. Equal air entry bilateral, no wheezing/rales/rhonchi Abdomen: Soft and mild deep tenderness suprapubic area Bowel sounds are present, no mass palpable, no CVA tenderness Skin: Skin warm and dry. Normal skin color. Normal skin turgor. Extremities: No lower extremity edema. No calf tenderness Neuro: Oriented X 3. No motor deficit. No sensory deficit.No cerebellar signs , cranial nerves II-XII intact Course Course Course Narrative: This is a Rapid Medical Exam performed in triage by Saima Costa PA-C. Full HPI, ROS and PE to be performed by primary ED provider. 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 Reports hx ovarian cyst PE: abdomen soft w/RLQ/suprapubic abd ttp Plan: Labs, UA, US Medical Decision Making Medical Decision Making [facility] Narrative: Patient with chronic nonspecific suprapubic pain with history of ovarian cyst in 05/02 workup at [facility] and here also negative with normal WBC counts ultrasound negative patient does have history of constipation likely the cause for the pain Lab Data [facility] Lab Attestation statement: I reviewed the patient's lab results. 07/25/24 16:17 07/25/24 16:17 Labs: Lab Results 07/25/24 Range/Units 16:17 WBC 5.6 (4.8-10.8) X10*3/uL RBC 4.35 (4.20-5.50) X10*6/uL Hgb 12.8 (12.0-16.0) g/dl Hct 39.6 (37.0-47.0) % MCV 91.0 (80.0-98.0) fL MCH 29.4 (27.0-33.0) pg MCHC 32.3 (31.0-35.0) g/dl RDW 13.2 (11.0-16.0) % Plt Count 297 (160-400) X10*3/uL MPV 11.2 (9.4-12.3) fL Immature Gran % (Auto) 0.2 (0.0-0.4) % Neut % (Auto) 41.7 L (45-73) % Lymph % (Auto) 43.8 H (20-40) % Hart % (Auto) 9.3 (2-11) % Eos % (Auto) 4.1 H (0-4) % Baso % (Auto) 0.9 (0-2) % Lymph # (Auto) 2.5 (1.2-4.9) X10*3/uL Hart # (Auto) 0.5 (0.1-1.2) X10*3/uL Eos # (Auto) 0.2 (0.0-0.4) X10*3/uL Baso # (Auto) 0.1 (0.0-0.2) X10*3/uL Abs Immat Gran (auto) 0.01 (0.00-0.03) X10*3/uL Absolute Neuts (auto) 2.4 (2.0-8.3) x10*3/uL Absolute Nucleated RBC 0.000 (0.0-0.012) X10*3/uL Nucleated RBC % (auto) 0.0 (0.0-0.2) /100WBC Sodium 141 (135-145) mmol/L Potassium 3.9 (3.3-5.1) mmol/L Chloride 109 H (96-108) mmol/L Carbon Dioxide 26 (22-29) mmol/L Anion Gap 10 L (12-20) BUN 8 L (9-16) mg/dL Creatinine 0.72 (0.5-1.4) mg/dL Estim Creat Clear Calc 164.9 Estimated GFR > 60 Random Glucose 89 (60-115) mg/dL Calcium 9.2 (8.4-10.2) mg/dL Magnesium 1.8 (1.6-2.6) mg/dL Total Bilirubin 0.6 (0.0-1.0) mg/dL Direct Bilirubin 0.2 (0.0-0.5) mg/dL AST 19 (5-31) U/L ALT 20 (0-31) U/L Alkaline Phosphatase 128 H (39-117) U/L Total Protein 8.0 (6.5-8.0) g/dL Albumin 3.9 (3.5-5.0) g/dL Lipase 18 (8-78) U/L Urine Color Yellow Urine Appearance Clear Urine pH 8.0 (5.0-9.0) Ur Specific Bassett <= 1.005 (1.005-1.025) Urine Protein Negative (Neg-Trace) mg/dL Urine Glucose (UA) Negative (Negative) mg/dL Urine Ketones Negative (Negative) mg/dL Urine Blood Negative (Negative) Urine Nitrite Negative (Negative) Ur Leukocyte Esterase Negative (Negative) Urine Test NEGATIVE (NEGATIVE) Discharge Plan Discharge Clinical Impression: Abdominal pain Prescriptions: No Action cyanocobalamin (vitamin B-12) 500 mcg tablet 500 mcg PO DAILY Qty: 30 5RF cholecalciferol (vitamin D3) 50 mcg (2,000 unit) capsule 50 mcg PO DAILY Qty: 30 5RF vitamin A palmitate 10,000 unit tablet 20,000 unit PO DAILY 28 Days Qty: 56 0RF albuterol sulfate 90 mcg/actuation HFA aerosol inhaler 2 puff inhalation Q4-6H PRN (Reason: shortness of breath or wheezing) Qty: 8.5 0RF acetaminophen [Tylenol Extra Strength] 500 mg tablet 1,000 mg PO Q6H PRN (Reason: fever or pain) Qty: 20 0RF meclizine [Dramamine Less Drowsy] 25 mg tablet 25 mg PO TID PRN (Reason: dizziness) Qty: 20 0RF ibuprofen 400 mg tablet 400 mg PO TID PRN (Reason: fever or pain) Qty: 30 0RF albuterol sulfate [ProAir HFA] 90 mcg/actuation HFA aerosol inhaler 2 puff inhalation Q4H Print Language: Turkmen
[2024-07-25 16:23] LABS: MANUAL DIFF FLAG NO
[2024-07-25 16:26] LABS: Appearance Urine Clear; Color Urine Yellow; Glucose Urine UA Negative (Negative); Leukocyte Esterase Urine Negative (Negative); Nitrite Urine Negative (Negative); Specific Gravity - Urine <= 1.005 (1.005-1.025); Urine Blood Negative (Negative); Urine Ketones Negative (Negative); Urine Protein Negative (Neg-Trace)
[2024-07-25 16:27] LABS: Basophils Absolute Auto 0.1 X10*3/uL (0.0-0.2); Basophils Percent Auto 0.9 % (0-2); Eosinophils Absolute Auto 0.2 X10*3/uL (0.0-0.4); Eosinophils Percent Auto 4.1 % (0-4); Hematocrit 39.6 % (37.0-47.0); Hemoglobin 12.8 g/dl (12.0-16.0); Imm Gran Abs Auto 0.01 X10*3/uL (0.00-0.03); Imm Gran Pct Auto 0.2 % (0.0-0.4); Lymphocytes Absolute Auto 2.5 X10*3/uL (1.2-4.9); Lymphocytes Percent Auto 43.8 % (20-40); Mean Corpuscular HGB Conc 32.3 g/dl (31.0-35.0); Mean Corpuscular Hemoglobin 29.4 pg (27.0-33.0); Mean Platelet Volume 11.2 fL (9.4-12.3); Monocytes Absolute Auto 0.5 X10*3/uL (0.1-1.2); Monocytes Percent Auto 9.3 % (2-11); Neutrophils Absolute Auto 2.4 x10*3/uL (2.0-8.3); Neutrophils Percent Auto 41.7 % (45-73); Platelet Count 297 X10*3/uL (160-400); Red Blood Count 4.35 X10*6/uL (4.20-5.50); Red Cell Distribution Width 13.2 % (11.0-16.0); White Blood Count 5.6 X10*3/uL (4.8-10.8)
[2024-07-25 16:31] LABS: UPreg QC Valid YES; Urine Pregnancy NEGATIVE (NEGATIVE)
[2024-07-25 16:39] LABS: Alanine Aminotransferase 20 U/L (0-31); Albumin Level 3.9 g/dL (3.5-5.0); Alkaline Phosphatase 128 U/L (39-117); Anion Gap 10 (12-20); Aspartate Amino Transferase 19 U/L (5-31); Bilirubin Direct 0.2 mg/dL (0.0-0.5); Bilirubin Total 0.6 mg/dL (0.0-1.0); Blood Urea Nitrogen 8 mg/dL (9-16); Calcium 9.2 mg/dL (8.4-10.2); Carbon Dioxide 26 mmol/L (22-29); Chloride 109 mmol/L (96-108); Creatinine Clr Calc Pharmacy 164.9; Estimated Glomerular Filt Rate > 60; Glucose Random 89 mg/dL (60-115); Lipase 18 U/L (8-78); Magnesium 1.8 mg/dL (1.6-2.6); Potassium 3.9 mmol/L (3.3-5.1); Sodium 141 mmol/L (135-145)
[2024-07-25 23:21] VITALS: BP 121/66; PULSE 73; RESP 18; TEMP 37.3; O2SAT 99
[2024-07-25] MEDS: Milk of Magnesia 30 ML ORAL.SUSP PO (23:44)
[2024-07-25] MEDS: Ibuprofen 600 MG TABLET PO (23:44)
[2024-07-25 23:51] VITALS: BP 121/66; PULSE 73; RESP 18; TEMP 37.3; O2SAT 99
== END 2024-07-26 | disposition home or self-care (01) ==
PROVIDERS: Physician Assistant; Emergency Provider Internal Medicine; PCP Naturopath
DX: R10.2 Pelvic and perineal pain (principal); R10.31 Right lower quadrant pain; Z79.899 Other long term (current) drug therapy
CPT/HCPCS: 36415; 76830; 76856; 80048; 80076; 81003; 81025; 83690; 83735; 85025; 99283; 99284

== ENCOUNTER → 2024-07-25 15:57 | Outpatient (BNV) | payer OTHER, SELFPAY | PROVIDERS: PCP Naturopath; Visit Provider Radiology Diagnostic Radiology | DX: R10.31 Right lower quadrant pain (principal) | CPT/HCPCS: 76830; 76856 ==